=== PATIENT | female | born 1985 | race Caucasian/White ===

== ENCOUNTER → 2018-03-16 09:38 | Outpatient (CLI) | payer OTHER, SELFPAY ==
[2018-03-16 10:05] LABS: Add Manual Diff / Slide Review NO; Basophils Percent Auto 0.2 % (0-2); Eosinophils Percent Auto 3.6 % (2-4); Hematocrit 41.3 % (36-46); Lymphocytes Percent Auto 28.9 % (25-40); Mean Corpuscular Hemoglobin 33.3 PG (26-34); Mean Corpuscular Volume 98.2 fL (80-100); Monocytes Percent Auto 8.7 % (3-14); Neutrophils Absolute Auto 2900 /uL (3000-5900); Neutrophils Percent Auto 58.6 % (50-75); Platelet Count 213 X10^3/uL (150-400); Red Blood Cell Count 4.21 X10^6/uL (4.0-5.2); Red Cell Distribution Width 12.3 % (11.6-14.8)
[2018-03-16 10:26] LABS: Alanine Aminotransferase 25 IU/L (9-52); Albumin 4.6 g/dL (3.5-5.0); Albumin Globulin Ratio 1.8 (1.0-2.8); Alkaline Phosphatase 63 U/L (38-126); Aspartate Aminotransferase 20 IU/L (14-36); BUN Creatinine Ratio 21.1 (6-22); Bilirubin Total 0.7 mg/dL (0.2-1.3); Bilirubin Unconjugated 0.5 mg/dL (0.0-1.1); Blood Urea Nitrogen 19 mg/dL (7-17); Calcium 9.6 mg/dL (8.4-10.2); Carbon Dioxide 25 mmol/L (22-32); Chloride 108 mmol/L (98-107); Cholesterol 157 mg/dL (140-199); Estimated Glomerular Filt Rate > 60.0 mL/min (>60); Globulin 2.6 g/dL (1.7-4.1); Glucose 87 mg/dL (70-100); HDL Cholesterol 60 mg/dL (40-60); HEMOLYSIS < 15 (0-50); LDL Cholesterol Calculated 88 mg/dL (<100); Potassium 5.1 mmol/L (3.4-5.1); Sodium 145 mmol/L (137-145); Total Protein 7.2 g/dL (6.3-8.2); Triglycerides 44 mg/dL (35-150)
[2018-03-16 10:42] LABS: Vitamin D 25 Hydroxy (D3) 43.9 ng/mL (30.0-100.0)
[2018-03-16 10:54] LABS: Thyroid Stimulating Hormone 2.44 uIU/mL (0.47-4.68)
[2018-03-16 11:00] LABS: Ferritin 25.9 ng/mL (6.27-137)
[2018-03-16 11:30] LABS: Folate 19.3 ng/mL (2.76-20.0); Vitamin B12 494 pg/mL (239-931)
== END ==
PROVIDERS: PCP Radiology Diagnostic Radiology; Visit Provider Nurse Practitioner Psychiatric/Mental Health
DX: F31.9 Bipolar disorder, unspecified (principal)
CPT/HCPCS: 36415; 80053; 80061; 80076; 82306; 82607; 82728; 82746; 84439; 84443; 85025

== ENCOUNTER → 2018-10-25 14:44 | Outpatient (CLI) | payer OTHER, SELFPAY ==
--- NOTE | 2018-10-25 14:46 | DI.RAD.S_ITS ---
PROCEDURE: XR WRIST RT MIN 3V INDICATIONS: wrist pain TECHNIQUE: 4 views of the wrist were acquired. COMPARISON: None. FINDINGS: Bones: No fractures or dislocations. No suspicious bony lesions. Scaphoid view: Scaphoid is grossly intact. Soft tissues: No suspicious soft tissue calcifications. IMPRESSION: No finding to explain patient's clinical symptoms. Dictated by: Hernando Yoder M.D. on 10/25/2018 at 16:24 Approved by: Hernando Yoder M.D. on 10/25/2018 at 16:26
== END ==
PROVIDERS: PCP Radiology Diagnostic Radiology; Visit Provider Physician Assistant
DX: M25.531 Pain in right wrist (principal)
CPT/HCPCS: 73110

== ENCOUNTER → 2019-03-05 13:40 | Outpatient (CLI) | payer OTHER, SELFPAY ==
[2019-03-05 15:41] LABS: Follicle Stimulating Hormone 6.46 mIU/mL
[2019-03-10 12:39] LABS: Inhibin B 59 pg/mL
== END ==
PROVIDERS: PCP Physician Assistant
DX: N91.2 Amenorrhea, unspecified (principal); N97.0 Female infertility associated with anovulation
CPT/HCPCS: 36415; 82397; 83001

== ENCOUNTER → 2019-05-05 10:49 | Outpatient (CLI) | payer OTHER, SELFPAY | PROVIDERS: PCP Physician Assistant; Visit Provider Nurse Practitioner | DX: J02.9 Acute pharyngitis, unspecified (principal) | CPT/HCPCS: 87070; 87077; 87147 ==

== ENCOUNTER → 2020-04-10 09:56 | Outpatient (CLI) | payer OTHER, SELFPAY ==
[2020-04-11 01:33] LABS: COVID19 Sendout Not Detected (Not Detect)
== END ==
PROVIDERS: PCP Physician Assistant; Visit Provider Physician Assistant
DX: Z11.59 Encounter for screening for other viral diseases (principal)
CPT/HCPCS: 87635

== ENCOUNTER → 2020-07-03 14:13 | Outpatient (CLI) | payer OTHER, SELFPAY ==
--- NOTE | 2020-07-03 14:14 | DI.MG.S_ITS ---
BILATERAL DIGITAL DIAGNOSTIC MAMMOGRAM 3D/2D: 07/03/2020 CLINICAL: Right breast pain. Baseline exam. No prior exams were available for comparison. The tissue of both breasts is extremely dense, which lowers the sensitivity of mammography. No significant masses, calcifications, or other findings are seen in either breast. IMPRESSION: INCOMPLETE: NEEDS ADDITIONAL IMAGING EVALUATION There is no abnormality seen in the right breast to correspond with the pain, however,ultrasound is recommended. Ultrasound will be performed immediately following the current exam. This exam was interpreted at Station ID: [id number]. NOTE: For mammograms, a report in lay terms will be sent to the patient. Approximately 15% of breast malignancies will not be visualized mammographically. In the management of a palpable breast mass, a negative mammogram must not discourage biopsy of a clinically suspicious lesion. Electronically Signed By: Eduardo Arias M.D. ddp/:07/03/2020 15:00:46 ACR BI-RADS Category 0: Incomplete [id number]
--- NOTE | 2020-07-03 15:40 | DI.US.S_ITS ---
At the request of: JEREMIAH MURPHY Procedure: US breast RT limited LIMITED ULTRASOUND OF RIGHT BREAST: 07/03/2020 CLINICAL: Patient returns today to evaluate a focal asymmetry in the right breast. Comparison is made to exam dated: 07/03/2020 mammogram - [facility]. Color flow and real-time ultrasound of the right breast retroareolar were performed on the areas of interest. No discrete cystic or solid periareolar mass lesion identified in the area of periareolar pain. There is a 0.6 cm x 0.3 cm x 0.5 cm cluster of oval cysts with a septated internal wall in the right breast at 10 o'clock anterior depth. This cluster of oval cysts is hypoechoic with posterior acoustic enhancement. Color flow imaging demonstrates that there is no vascularity present. IMPRESSION: PROBABLY BENIGN The 0.6 cm x 0.3 cm x 0.5 cm cluster of oval cysts in the right breast is consistent with complicated cysts and is probably benign. A follow-up ultrasound in 6 months is recommended. There is no abnormality seen in the right breast to correspond with the pain in the sub-areolar depth, however, clinical followup is recommended. A follow-up ultrasound in 6 months is recommended to demonstrate stability. This exam was interpreted at Station ID: [id number]. Electronically Signed By: Eduardo benitez/:07/03/2020 15:56:12 letter sent: Followup Recommended Ultrasound BI-RADS: 3 Probably benign
== END ==
PROVIDERS: PCP Family Medicine; Referring Provider Family Medicine; Visit Provider Family Medicine
DX: R92.8 Other abnormal and inconclusive findings on diagnostic imaging of breast (principal); N60.01 Solitary cyst of right breast; N64.4 Mastodynia; Q83.9 Congenital malformation of breast, unspecified
CPT/HCPCS: 76642; 77066; G0279

== ENCOUNTER → 2020-08-26 09:12 | Outpatient (CLI) | payer OTHER, SELFPAY ==
[2020-08-26 11:07] LABS: COVID19 -Nasal RAPID Negative (Negative)
== END ==
PROVIDERS: PCP Family Medicine; Visit Provider Physician Assistant
DX: J02.9 Acute pharyngitis, unspecified (principal); R50.9 Fever, unspecified; R53.83 Other fatigue; Z20.822 Contact with and (suspected) exposure to COVID-19
CPT/HCPCS: 36415; 80053; 84443; 85025; 86318; 87070; 87077; 87147; 87635

== ENCOUNTER → 2020-08-26 15:13 | Outpatient (CLI) | payer OTHER, SELFPAY ==
[2020-08-26 15:28] LABS: Hematocrit 41.3 % (36-46); Hemoglobin 14.1 g/dL (12.0-16.0); Mean Corpuscular HGB Conc 34.2 % (30-36); Mean Corpuscular Hemoglobin 32.9 PG (26-34); Mean Corpuscular Volume 96.1 fL (80-100); Platelet Count 200 X10^3/uL (150-400); Red Cell Distribution Width 11.9 % (11.6-14.8); White Blood Cell Count 5.4 X10^3/uL (4.5-11.0)
[2020-08-26 15:35] LABS: Monotest Negative (Negative)
[2020-08-26 15:49] LABS: Alanine Aminotransferase 19 IU/L (<35); Albumin 4.5 g/dL (3.5-5.0); Albumin Globulin Ratio 1.5 (1.0-2.8); Alkaline Phosphatase 62 U/L (38-126); Aspartate Aminotransferase 27 IU/L (14-36); BUN Creatinine Ratio 17.7 (6-22); Bilirubin Total 0.4 mg/dL (0.2-1.3); Blood Urea Nitrogen 14 mg/dL (7-17); Carbon Dioxide 22 mmol/L (22-32); Chloride 108 mmol/L (98-107); Estimated Glomerular Filt Rate > 60.0 mL/min (>60); Globulin 3.1 g/dL (1.7-4.1); Glucose 104 mg/dL (70-100); HEMOLYSIS < 15 (0-50); Neutrophils Absolute Manual 3186 /uL (3000-5900); Potassium 4.3 mmol/L (3.4-5.1); RBC Morphology Normal Morphology; Sodium 139 mmol/L (137-145); Total Cells Counted 100; Total Protein 7.6 g/dL (6.3-8.2)
[2020-08-26 18:06] LABS: TSH w/ Reflex to FT4 1.99 uIU/mL (0.47-4.68)
== END ==
PROVIDERS: PCP Family Medicine; Referring Provider Physician Assistant; Visit Provider Physician Assistant
DX: J02.9 Acute pharyngitis, unspecified (principal); R53.83 Other fatigue
CPT/HCPCS: 36415; 80053; 84443; 85025; 86318

== ENCOUNTER → 2020-10-01 08:41 | Outpatient (CLI) | payer OTHER, SELFPAY ==
[2020-10-01] MEDS: COVID-19 VACC #1, MRNA(MOD) 100 MCG/0.5 ML VIAL IM (08:49)
== END ==
PROVIDERS: PCP Family Medicine; Visit Provider Internal Medicine
DX: Z23 Encounter for immunization (principal)
CPT/HCPCS: 0011A; 91301

== ENCOUNTER → 2020-10-29 08:42 | Outpatient (CLI) | payer OTHER, SELFPAY ==
[2020-10-29] MEDS: COVID-19 VACC #2, MRNA(MOD) 100 MCG/0.5 ML VIAL IM (08:50)
== END ==
PROVIDERS: PCP Family Medicine; Visit Provider Internal Medicine
DX: Z23 Encounter for immunization (principal)
CPT/HCPCS: 0012A; 91301

== ENCOUNTER → 2020-12-16 12:40 | Outpatient (CLI) | payer OTHER, SELFPAY ==
--- NOTE | 2020-12-16 12:41 | DI.US.S_ITS ---
ULTRASOUND OF RIGHT BREAST: 12/16/2020 CLINICAL: 6 month follow-up of cysts. Comparison is made to exams [facility]2020 [facility] and real-time ultrasound of the right breast were performed. Mayers scale images of the real-time examination were reviewed. There is a stable 0.5 cm x 0.5 cm x 0.3 cm oval cyst with a septated internal wall in the right breast at 11 o'clock middle depth 4 cm from the nipple with the long axis parallel to the skin. Color flow imaging demonstrates that there is no vascularity present. IMPRESSION: PROBABLY BENIGN The stable 0.5 cm x 0.5 cm x 0.3 cm oval cyst in the right breast is consistent with a complicated cyst and is probably benign. A follow-up right ultrasound in 12 months is recommended. Findings and recommendations were conveyed to the patient at time of exam. This exam was interpreted at Station ID: [id number]. Electronically Signed By: Rosie finley/:12/16/2020 13:07:54 letter sent: Followup Recommended Ultrasound BI-RADS: 3 Probably benign
== END ==
PROVIDERS: PCP Family Medicine; Referring Provider Family Medicine; Visit Provider Family Medicine
DX: N60.01 Solitary cyst of right breast; R92.8 Other abnormal and inconclusive findings on diagnostic imaging of breast; Q83.9 Congenital malformation of breast, unspecified
CPT/HCPCS: 76642